=== PATIENT | male | born 1980 ===

== ENCOUNTER 2017-03-29 13:12 | Observation (INO) | payer MEDICAID ==
[2017-03-29 13:12] VITALS: BMI 23.7
[2017-03-29 13:20] VITALS: TEMP 99.5; O2SAT 99
[2017-03-29] MEDS ORDERED: Sodium Chloride 0.9% 1,000 ML IV STA (13:26)
[2017-03-29 14:15] LABS: BASO % 0.3 % (0.0-2.0); HEMATOCRIT 37.9 % (35.0-51.0); LYMPH # 0.8 K/uL (1.0-4.3); LYMPH % 6.4 % (20.0-40.0); MEAN CELL VOLUME 94.9 fl (80.0-94.0); MEAN CORPUSCULAR HGB CONC 33.8 g/dL (33.0-37.0); MEAN PLATELET VOLUME 8.2 fl (7.2-11.7); MONO # 0.7 K/uL (0.0-0.8); MONO % 5.1 % (0.0-10.0); NEUT # 11.5 K/uL (1.8-7.0); NEUT % 88.2 % (50.0-75.0); NRBC % 0.1 % (0.0-0.0); RED CELL DISTRIBUTION WIDTH 12.5 % (11.5-14.5)
[2017-03-29 14:28] LABS: ALB/GLOB RATIO 1.1 (1.0-2.1); ALCOHOL SERUM < 10 mg/dl (0-10); ALKALINE PHOSPHATASE 93 U/L (38-126); ALT/SGPT 102 U/L (21-72); AST/SGOT 124 U/L (17-59); BILIRUBIN,TOTAL 1.9 mg/dl (0.2-1.3); BLOOD UREA NITROGEN 18 mg/dl (9-20); CALCIUM 9.8 mg/dL (8.4-10.2); CARBON DIOXIDE 22 mmol/L (22-30); CHLORIDE 93 mmol/L (98-107); GFR AFRICAN-AMERICAN > 60; GLUCOSE,RANDOM 146 mg/dL (75-110); POTASSIUM 3.6 MMOL/L (3.6-5.0); SODIUM 136 mmol/l (132-148); TOTAL PROTEIN 8.9 G/DL (6.3-8.2)
[2017-03-29 15:19] VITALS: BP 117/78; PULSE 90; RESP 16
--- NOTE | 2017-03-29 16:21 | ED PDOC ---
HPI: Psych/Substance Abuse Time Seen by Provider: 03/29/17 13:23 Chief Complaint (Nursing): Substance Abuse Chief Complaint (Provider): Substance abuse History Per: Patient History/Exam Limitations: no limitations Onset/Duration Of Symptoms: Hrs Suicide/Self Injury Attempted (Context): None Modifying Factor(s): Other (K2) Additional Complaint(s): The patient is a 36yo male, presents to the ED for evaluation after using K2 today. Patient states "he went crazy" and offers no medical complaints. He denies any suicidal ideation, homicidal ideation, auditory or visual hallucinations. Past Medical History Reviewed: Historical Data, Nursing Documentation, Vital Signs Vital Signs: Last Vital Signs Temp 99.5 F 03/29/17 13:16 Pulse 90 03/29/17 15:18 Resp 16 03/29/17 15:18 BP 117/78 03/29/17 15:18 Pulse Ox 99 03/29/17 15:18 - Medical History PMH: No Chronic Diseases - Surgical History Surgical History: No Surg Hx - Family History Family History: States: No Known Family Hx, Unknown Family Hx - Immunization History Hx Tetanus Toxoid Vaccination: No Hx Influenza Vaccination: No Hx Pneumococcal Vaccination: No - Home Medications Home Medications: Ambulatory Orders Medication Instructions Recorded Naproxen [Naprosyn] 1 tab PO BID PRN #20 tab 02/11/17 Ondansetron ODT [Zofran ODT] 1 odt PO BID PRN #6 odt 03/29/17 Pantoprazole Sodium [Protonix] 20 mg PO DAILY #14 ect 03/29/17 - Allergies Allergies/Adverse Reactions: Allergies Allergy/AdvReac Type Severity Reaction Status Date / Time No Known Allergies Allergy Verified 02/11/17 14:37 Review of Systems ROS Statement: Except As Marked, All Systems Reviewed And Found Negative Psych: Positive for: Other (K2 use). Negative for: Suicidal ideation Physical Exam - Reviewed Nursing Documentation Reviewed: Yes Vital Signs Reviewed: Yes - Physical Exam Appears: Positive for: No Acute Distress Head Exam: Positive for: ATRAUMATIC, NORMAL INSPECTION, NORMOCEPHALIC Skin: Positive for: Warm, Dry Eye Exam: Positive for: EOMI, PERRL Neck: Positive for: Supple Cardiovascular/Chest: Positive for: Regular Rate, Rhythm, Other (linear abrasion on left lateral ribcage) Respiratory: Positive for: Normal Breath Sounds. Negative for: Respiratory Distress Extremity: Positive for: Normal ROM. Negative for: Deformity, Swelling Neurologic/Psych: Positive for: Alert (patient easily arousable), Oriented. Negative for: Motor/Sensory Deficits - Laboratory Results Result Diagrams: 03/29/17 14:00 03/29/17 14:00 - ECG O2 Sat by Pulse Oximetry: 99 (RA) Pulse Ox Interpretation: Normal Medical Decision Making Medical Decision Making: Time: 1320 Impression: Plan: -- ED observation pending clinical sobriety Reassess Scribe Attestation: Documented by Katina Pettit acting as a scribe for Dinah Stoll MD. Provider Attestation: All medical record entries made by the Scribe were at my direction and personally dictated by me. I have reviewed the chart and agree that the record accurately reflects my personal performance of the history, physical exam, medical decision making, and the department course for this patient. I have also personally directed, reviewed, and agree with the discharge instructions and disposition. ED OBSERVATION Date of observation admission: 03/29/17 Time of observation admission: 13:55 - Progress Note Progress Note: 03/29/17 13:55 IV fluids ordered. 03/29/17 15:22 Patient resting in room, no acute distress. 03/29/17 16:30 Chest x-ray ordered. 03/29/17 17:09 Patient left ED before receiving X-Ray, treatment incomplete. Disposition - Clinical Impression Clinical Impression: Substance abuse - Disposition Disposition: Left W/O Treatment Disposition Time: 17:09 Condition: UNKNOWN
== END 2017-03-29 17:12 | disposition left against medical advice (07) ==
LOC: H.ER 13:12 → H.EROBSV 13:55
PROVIDERS: ADMIT Emergency Medicine; ATTEND Emergency Medicine
DX: F16.10 Hallucinogen abuse, uncomplicated (principal)
CPT/HCPCS: 80053; 80320; 80324; 80345; 80346; 80349; 80353; 80358; 80361; 83992; 85025; 99283; G0378; J7040